=== PATIENT | male | born 1995 | race Caucasian/White ===

== ENCOUNTER 2018-02-26 21:14 | Emergency (ER) | payer OTHER ==
[~2018-02-26] VITALS: Ht 182.9 cm; Wt 83.9 kg
[~2018-02-26 21:14] MED LIST: ACETAMINOPHEN-1 EAC1 PO; FLEXERIL PO; IBUPROFEN 800800 MG PO; MEDROLDOSEPACK PO; NAPROSYN500 MG PO; NORCO 5-325 TA1 EACH PO; NORFLEX100 MG PO
[2018-02-26 21:20] VITALS: BP 144/91
[2018-02-26] MEDS ORDERED: BACTRIM DS TAB1 EAC1 PO (21:29)
== END 2018-02-26 21:41 | disposition home or self-care (01) ==
LOC: M.ERS 21:14
DX: S51.012D Laceration without foreign body of left elbow, subsequent encounter (principal); X58.XXXD Exposure to other specified factors, subsequent encounter

== ENCOUNTER 2018-10-14 15:53 | Emergency (ER) | payer OTHER ==
[~2018-10-14] VITALS: Ht 182.9 cm; Wt 88.1 kg
[~2018-10-14 15:53] MED LIST changes: +BACTRIM DS TAB1 EAC1 PO
[2018-10-14] MEDS ORDERED: NORCO 5-325 TA1 EAC1 PO (16:43)
[2018-10-14 17:04] VITALS: BP 138/80
== END 2018-10-14 17:06 | disposition home or self-care (01) ==
LOC: M.ERS 15:53
DX: S89.82XA Other specified injuries of left lower leg, initial encounter (principal); F17.200 Nicotine dependence, unspecified, uncomplicated; W18.39XA Other fall on same level, initial encounter; Y92.89 Other specified places as the place of occurrence of the external cause; Y93.89 Activity, other specified; Y99.8 Other external cause status

== ENCOUNTER 2020-10-12 17:49 | Emergency (ER) | payer OTHER ==
[~2020-10-12] VITALS: Ht 182.9 cm; Wt 95.3 kg
[~2020-10-12 17:49] MED LIST changes: +NORCO 5-325 TA1 EAC1 PO
[2020-10-12] MEDS ORDERED: NORCO5 PO ×2 (18:46→18:47)
[2020-10-12] MEDS ORDERED: PENICILLIN V P500 MG PO ×2 (18:46→18:47)
[2020-10-12] MEDS ORDERED: IBUPROFEN 800800 M1 PO ×2 (18:46→18:47)
[2020-10-12 19:30] VITALS: BP 122/68
== END 2020-10-12 19:30 | disposition home or self-care (01) ==
LOC: M.ERS 17:49
DX: K04.7 Periapical abscess without sinus (principal)